=== PATIENT | male | born 1975 | race Caucasian/White ===

== ENCOUNTER 2021-09-23 11:51 | Emergency (ER) | payer MEDICAID ==
[~2021-09-23] VITALS: Ht 172.7 cm; Wt 86.2 kg
--- NOTE | 2021-09-23 12:15 | NUR ---
THE PATIENT BIBS FOR MULTIPLE ABSCESS/PIMPLE, LEFT CHEEK. RATES FACE PAIN 5/10. RESPIRATION REGULAR AND UNLABORED. WILL CONTINUE TO MONITOR THE PATIENT.
[2021-09-23] MEDS ORDERED: BACITRACIN ZINC OINT PACKET 1 EA PACKET TP ONE (13:05)
[2021-09-23] MEDS: BACITRACIN ZINC OINT PACKET 1 EA PACKET TP ONE (13:10)
--- NOTE | 2021-09-23 13:10 | NUR ---
WOUND CARE DONE; KEPT SKIN C/D/I/
[2021-09-23] MEDS ORDERED: CEPH500C2 PO (14:03)
[2021-09-23] MEDS ORDERED: SULF1TAB48 PO (14:03)
[2021-09-23] MEDS ORDERED: MUPI22OI2 TP (14:03)
--- NOTE | 2021-09-23 14:20 | NUR ---
Patient given written and verbal discharge instructions. Patient verbalizes understanding of instructions. Patient is ambulatory with steady gait. Patient given list of available shelters in surrounding area.
[2021-09-23 14:21] VITALS: BP 133/84
== END 2021-09-23 14:21 | disposition home or self-care (01) ==
LOC: ER 11:58
DX: L03.211 Cellulitis of face (principal); T78.8XXA Other adverse effects, not elsewhere classified, initial encounter; Z60.2 Problems related to living alone; X58.XXXA Exposure to other specified factors, initial encounter

== ENCOUNTER 2021-09-25 10:16 | Emergency (ER) | payer MEDICAID ==
[~2021-09-25] VITALS: Ht 172.7 cm; Wt 86.2 kg
[~2021-09-25 10:16] MED LIST: CEPH500C2 PO; MUPI22OI2 TP; SULF1TAB48 PO
[2021-09-25 10:22] VITALS: BP 139/90
[2021-09-25] MEDS ORDERED: CLIN150C16 PO (10:31)
--- NOTE | 2021-09-25 10:39 | NUR ---
Patient discharged to home in stable condition. Written and verbal after care instructions given. Patient verbalizes understanding of instruction.
== END 2021-09-25 10:40 | disposition home or self-care (01) ==
LOC: ER 10:19
DX: L03.211 Cellulitis of face (principal); Z60.2 Problems related to living alone